=== PATIENT | female | born 1935 | race Caucasian/White ===

== ENCOUNTER 2018-04-26 15:12 | Emergency (ER) | payer MEDICARE ==
--- NOTE | 2018-04-26 15:35 | UC ---
Complaint Female HPI - HPI Summary HPI Summary: urinary urgency and frequency for 6 months---worsening in the past 2 weeks despite treatment with antibiotics. Also c/o ear feeling like there is "something in them". HAs had leg swelling for a while ---refuses to use compression stockings--denies SOB, Orthopnea, - History Of Current Complaint Chief Complaint: UCGU Time Seen by Provider: 04/26/18 15:28 Hx Obtained From: Patient, Family/Dramatic Art Teacher ?: No Onset/Duration: Gradual Onset, Lasting Weeks Timing: Intermittent Radiates to: denies pain with urination does have some increase urinary incontenence Associated Signs And Symptoms: Positive: Negative - Allergies/Home Medications Allergies/Adverse Reactions: Allergies Allergy/AdvReac Type Severity Reaction Status Date / Time sulindac Allergy Unknown Verified 04/26/18 15:53 Reaction Details atorvastatin [From Lipitor] AdvReac See Comment Verified 04/26/18 15:51 simvastatin AdvReac See Comment Verified 04/26/18 15:50 clinirol Allergy Itching Uncoded 04/26/18 15:53 mobic Allergy Unknown Uncoded 04/26/18 15:53 Reaction Details lovastatin AdvReac See Comment Uncoded 04/26/18 15:51 Home Medications: Home Medications Apixaban* [Eliquis*] 2.5 mg PO BID 04/26/18 [History Confirmed 04/26/18] Atorvastatin* [Lipitor*] 10 mg PO DAILY 04/26/18 [History Confirmed 04/26/18] Calcium Carbonate/Vitamin D3 [Calcium 600+D Softgel] 1 each PO DAILY 04/26/18 [ History Confirmed 04/26/18] Ferrous Sulfate TAB* 325 mg PO DAILY 04/26/18 [History Confirmed 04/26/18] Folic Acid TAB* [Folvite TAB*] 1 mg PO DAILY 04/26/18 [History Confirmed ] Furosemide TAB* [Lasix TAB*] 20 mg PO DAILY 04/26/18 [History Confirmed 04/26/18 ] Gabapentin CAP(*) [Neurontin 300 CAP(*)] 300 mg PO DAILY 04/26/18 [History Confirmed 04/26/18] L.acidoph,Paracasei, B.lactis [Probiotic] 1 each PO DAILY 04/26/18 [History Confirmed 04/26/18] Latanoprost 0.005%* [Xalatan 0.005%*] 1 drop BOTH EYES QPM 04/26/18 [History Confirmed 04/26/18] Levothyroxine TAB* [Synthroid TAB*] 75 mcg PO DAILY 04/26/18 [History Confirmed 04/26/18] Methotrexate TAB* 5 tab PO WEEKLY 04/26/18 [History Confirmed 04/26/18] Metoprolol Succinate XL TAB* [Toprol XL TAB*] 25 mg PO DAILY 04/26/18 [History Confirmed 04/26/18] Mycostatin Powder 04/26/18 [History] Omeprazole CAP* [Prilosec CAP* 20 MG] 20 mg PO DAILY 04/26/18 [History Confirmed 04/26/18] Psyllium Husk [Metamucil] 0.52 gm PO DAILY 04/26/18 [History Confirmed 04/26/18] Sertraline* [Zoloft*] 25 mg PO DAILY 04/26/18 [History Confirmed 04/26/18] Tiotropium CAP.INH* [Spiriva CAP.INH*] 1 cap.inh INH DAILY 04/26/18 [History Confirmed 04/26/18] Vitamin D 3 DAILY 04/26/18 [History] Zoledronic Acid/Mannitol-Water [Zoledronic Acid 5 mg/100 ml] 04/26/18 [History] dilTIAZem HCl [Dilt-Xr] 180 mg PO DAILY 04/26/18 [History Confirmed 04/26/18] inFLIXimab* [Remicade*] 100 mg IV SEE INSTRUCTIONS 04/26/18 [History Confirmed 04/26/18] proPAFENone TAB* [Rythmol*] 150 mg PO Q6H 04/26/18 [History Confirmed 04/26/18] PMH/Surg Hx/FS Hx/Imm Hx Previously Healthy: No Endocrine History: Hypothyroidism, Dyslipidemia Cardiovascular History: Hypertension GI/ History: Gastroesophageal Reflux Psychological History: Other Other Psychological History: Dementia - Family History Known Family History: Positive: None - Social History Occupation: Retired Lives: Assisted Living Alcohol Use: None Substance Use Type: None Smoking Status (MU): Never Smoked Tobacco Have You Smoked in the Last Year: No Review of Systems Constitutional: Negative Skin: Negative Eyes: Negative ENT: Other - cerumen in ears Respiratory: Negative Cardiovascular: Negative Gastrointestinal: Negative Genitourinary: Negative Motor: Negative Neurovascular: Negative Musculoskeletal: Negative, Other: - swelling in BLE--- Neurological: Negative Psychological: Negative Is Patient Immunocompromised?: No All Other Systems Reviewed And Are Negative: Yes Physical Exam Triage Information Reviewed: Yes Completion Of Physical Exam Limited Due To: Dementia Appearance: Well-Appearing, No Pain Distress, Well-Nourished Vital Signs Reviewed: Yes Eye Exam: Normal Eyes: Positive: Conjunctiva Clear, Conjunctiva Inflamed ENT Exam: Normal ENT: Positive: Normal ENT inspection, Hearing grossly normal, Pharynx normal, TMs normal, Tonsillar exudate, Hoarse voice, Sinus tenderness Neck exam: Normal Neck: Positive: Supple, Nontender, No Lymphadenopathy Respiratory Exam: Normal Respiratory: Positive: Chest non-tender, Lungs clear, Normal breath sounds, No respiratory distress, No accessory muscle use Cardiovascular Exam: Normal Cardiovascular: Positive: RRR, No Murmur, Pulses Normal, Brisk Capillary Refill Abdominal Exam: Normal Abdomen Description: Positive: Nontender, No Organomegaly, Soft. Negative: CVA Tenderness (R), CVA Tenderness (L) Bowel Sounds: Positive: Present Musculoskeletal Exam: Other Musculoskeletal: Positive: Other: - slight swelling left knee Neurological Exam: Normal Psychological Exam: Normal Skin Exam: Normal Diagnostics - Laboratory Diagnostic Studies Completed/Ordered: Ua---trace leukoesterace, +1 ketones Complaint Female Dx - Course Course Of Treatment: good relief of ear pressure, will culture urine, will increase ditropan to 5 mg po qd, referral made to Dr. Santos for knee---follow with PROJECT MANAGEMENT PROFESSOR/PCP this week - Differential Dx/Diagnosis Provider Diagnoses: cerumen impaction-resolved, bilateral edema, knee pain (L), dysuria Discharge - Sign-Out/Discharge Documenting (check all that apply): Discharge/Admit/Transfer - Discharge Plan Condition: Stable Disposition: HOME Prescriptions: Oxybutynin TAB* [Ditropan TAB*] 5 mg PO DAILY #30 tab Patient Education Materials: Urinary Incontinence (ED), Cerumen Impaction (ED) , Knee Pain (ED) Referrals: Arun Santos MD [Medical Doctor] - 3 Days No Primary Care Phys,NOPCP [Primary Care Provider] - - Billing Disposition and Condition Condition: STABLE Disposition: HOME
--- NOTE | 2018-04-30 07:28 | UC ---
- Progress Note Progress Note: Pt presented with urinary symptoms for 6mo with two weeks of worsening symptoms. colony count less than 100K. Please call patient and see if she feels well. Also fax results to pcp so they can decide the next plan. Watchful waiting , repeat culture or referral. If she feels worse in any way, pt may need to return here for re eval. Discharge - Sign-Out/Discharge Documenting (check all that apply): Post-Discharge Follow Up - Discharge Plan Condition: Stable Disposition: HOME Prescriptions: Oxybutynin TAB* [Ditropan TAB*] 5 mg PO DAILY #30 tab Patient Education Materials: Urinary Incontinence (ED), Cerumen Impaction (ED) , Knee Pain (ED) Referrals: Arun Santos MD [Medical Doctor] - 3 Days No Primary Care Phys,NOPCP [Primary Care Provider] - - Billing Disposition and Condition Condition: STABLE Disposition: Home
== END 2018-04-26 17:15 | disposition home or self-care (01) ==
LOC: UCCORT 15:12
DX: R30.0 Dysuria (principal); M25.562 Pain in left knee; R60.0 Localized edema; H61.20 Impacted cerumen, unspecified ear; R39.15 Urgency of urination; R35.0 Frequency of micturition; K21.9 Gastro-esophageal reflux disease without esophagitis; I10 Essential (primary) hypertension; E03.9 Hypothyroidism, unspecified; Z79.899 Other long term (current) drug therapy; Z88.8 Allergy status to other drugs, medicaments and biological substances; Z88.6 Allergy status to analgesic agent
CPT/HCPCS: 81003; 87077; 87086; 87186; 99202; 99203; G0463

== ENCOUNTER 2018-11-29 17:10 | Emergency (ER) | payer MEDICARE ==
--- OUTSIDE RECORDS SUMMARY | 2018-11-29 17:23 | XMS REPORT ---
:1935 External Reference #:[id number] Author Organization [facility] Address [address], [address] [place] [address] Phone [phone] Care Team Providers Name Role Phone Sarah Arreguin MD Care Team Information Distribution Technician Unavailable Courtney Dang MD, PHD Primary Care Physician Unavailable Payers Type Date Identification Numbers Payment Provider Subscriber Medicare Primary Policy Number: [id number] Medicare Malika Redd PayID: [id number] [address] [place] [address] Medigap Part B Policy Number: [id number] [facility] Malika Redd PayID: [id number] [address] [place] [address] Medigap Part B Expires: 2017 Policy Number: Fiona Redd [id number] Progressive PayID: [id number] [address] [place] [address] Problems Date Description Provider Status Onset: 06/09/2018 History of fall Courtney Dang MD, PHD Active Onset: 06/09/2018 Rheumatoid arthritis Courtney Dang MD, PHD Active Onset: 06/09/2018 Long-term current use of Courtney Dang MD, PHD Active anticoagulant Onset: 06/09/2018 Repetitive self-excoriation Courtney Dang MD, PHD Active Onset: 06/09/2018 Other seborrheic keratosis Courtney Dang MD, PHD Active Onset: 06/09/2018 Stress incontinence (female) (male) Courtney Dang MD, PHD Active Onset: 06/09/2018 Paroxysmal atrial fibrillation Courtney Dang MD, PHD Active Onset: 06/09/2018 Hypothyroidism Courtney Dang MD, PHD Active Onset: 06/09/2018 Edema Courtney Dang MD, PHD Active Onset: 06/09/2018 Electrocardiogram abnormal Courtney Dang MD, PHD Active Onset: 06/09/2018 Bradycardia, unspecified Courtney Dang MD, PHD Active Onset: 06/23/2018 Urinary tract infectious disease Courtney Dang MD, PHD Active Onset: 06/23/2018 Dysuria Courtney Dang MD, PHD Active Onset: 06/23/2018 Increased frequency of urination Courtney Dang MD, PHD Active Onset: 08/14/2018 Knee pain Courtney Dang MD, PHD Active Onset: 08/14/2018 Shoulder joint pain Courtney Dang MD, PHD Active Onset: 08/14/2018 C/O - a back symptom Courtney Dang MD, PHD Active Onset: 08/14/2018 Essential hypertension Courtney Dang MD, PHD Active Onset: 08/14/2018 Immunization Courtney Dang MD, PHD Active Onset: 07/09/2018 Pure hypercholesterolemia Dre Gomez PA Active Family History Date Family Member(s) Problem(s) Comments General Heart Attack General Hypertension General CAD General Heart Disease Father due to cardiac unspecified () Mother due to cardiac unspecified () First Sister Malignant Lymphoma (Clinical) Grandfather due to Motor Vehicle Accident () Grandfather 78 Social History Type Date Description Comments Lives With Assisted Living [facility] Diet Low Sodium Does not adhere to diet. Occupation [employer] Occupation Retired Cigarette Use Former Cigarette Smoker ETOH Use Occasionally consumed alcohol in the past Smoking Patient is a former smoker Daily Caffeine Consumes on average 1 soda per occasionally day Security Architect Name Assisted Living Facility General Hx Text lives at [facility]. January. Allergies, Adverse Reactions, Alerts Date Description Reaction Status Severity Comments 05/07/2018 Lipitor active 05/07/2018 Lovastatin active 05/07/2018 Mobic active 05/07/2018 Simvastatin active 05/07/2018 Sulindac active 06/09/2018 Sulindac active Medications Medication Date Status Form Strength Qnty SIG Indications Ordering Provider Nystatin Active Powder [id number] 60gm apply to [place], 018 /GM affected Courtney, area twice , PHD a day Metoprolol Active Tablets ER 25mg 30tabs 1 by mouth I48.1 Rios, Succinate ER 018 24HR every Marni evening Felicitas, MSN, [employer]ANT [employer] AIDE Ranexa Active Tablets ER 500mg 60tabs 1 tab by I48.1 Julieth, 018 12HR mouth Schuyler M., twice a M.DVeronica, [facility] day Arnicare Active Gel 75g apply to M25.562 [place], 018 affected Courtney, area four , PHD times a day pain, swelling, bruising [place]-3 CF Active Capsules 1000mg 60caps 1 cap by F42.4 [place], 018 mouth Courtney, twice a MD, PHD day with meals Nac 600 Active Capsules 600mg 90caps 1 cap by F42.4 [place] 018 mouth Courtney, three , PHD times a day after meals Arnicare Active Cream 210gm apply to L82.1 [place], Arnica 018 affected Courtney, area four , PHD times a day as needed M06.9 Depend 06/09/2018 Active Misc 100units 1 every 4 N39.3 [place], Adjustable hours as Courtney, Underwear L/XL needed , PHD Furosemide 05/07/2018 Active Tablets 20mg 30tabs 1 tab by R60.0 [place], mouth in the Courtney, morning with MD, PHD potassium/ba viviana if you gain 2 lbs overnight or 5 lbs in a week. Levothyroxine Active Tablets 75mc 1 by mouth Unknown Sodium g every day Folic Acid Active Tablets 1mg 2 by mouth Unknown every day Omeprazole Active Capsules 20mg 1 po daily Unknown Sertraline HCL Active Tablets 25mg 1 by mouth Unknown every day Latanoprost Active Solution 0.00 1 drop each Unknown 5% eye at night Atorvastatin Active Tablets 10mg 1 by mouth Unknown Calcium every day Eliquis Active Tablets 2.5m 1 tab by Unknown g mouth twice daily Remicade Active Solution 100m every 6 Unknown Rec g weeks Metamucil Plus Active Capsules as directed Unknown Calcium Gabapentin Active Capsules 300m 1 by mouth Unknown g three times a day as needed Methotrexate Active Tablets 2.5m 5 tabs by Unknown g mouth every week Vitamin D3 - Active Tablets 400U take one Unknown 400 nit tablets by mouth every day Metoprolol 10/02/2018 - Hx Tablets ER 50mg 30tabs 1 by mouth I48.1 Rios, Succinate ER 10/21/2018 24HR every day Marni Polk, MSN, [employer]ANT CONTR[employer] AIDE Digoxin 09/25/2018 - Hx Tablets 125m 30tabs 1 by mouth I48.0 Julieth, 10/20/2018 cg every day Schuyler Osman M.D., [facility] Amoxicillin/Cla 09/25/2018 - Hx Tablets 875- 14tabs 1 tab twice J20.9 nohelia Clancyanate 09/27/2018 125m daily for 7 Schuyler M., Potassium g days M.D., [facility] Ranexa 08/18/2018 Hx Tablets ER 500m 60tabs 1 by mouth R07.2 Arreguin, 12HR g twice a day MD Sarah Metoprolol 07/09/2018 Hx Tablets ER 25mg 30tabs 1 by mouth I48.1 Davidenko, Succinate ER 24HR every Schuyler M., evening M.D., [facility] Amoxicillin 06/23/2018 - Hx Capsules 500m 14caps 1 tab by Katia.Kayleigh Dang, 08/14/2018 g mouth twice Courtney, a day , PHD Diflucan 06/23/2018 Hx Tablets 150m 1tabs 1 tab by N39.0 [place], g mouth as Courtney, needed for , PHD yeast overgrowth. Propafenone HCL 06/20/2018 - Hx Tablets 150m 90tabs 1 by mouth I48.1 Rios, 07/09/2018 g tid Marni Polk, MSN, [employer]ANT CONTR[employer] AIDE Propafenone HCL 06/11/2018 - Hx Tablets 300m three times Arreguin, 06/18/2018 g daily MD Sraah Keflex 06/11/2018 - Hx Capsules 500m 14caps 1 cap by N39.0 [place], 06/23/2018 g mouth twice Courtney, a day , PHD Diltiazem CD 05/07/2018 - Hx Caps ER 120m 90caps 1 by mouth R00.1 Julieth, 06/09/2018 24HR g every day Schuyler Osman M.D., [facility] Physical 10/07/2017 Hx please Rodríguez, Therapy evaluate and MD Sarah treat balance training, fall prevention Propafenone HCL - Hx Tablets 150m 1 po every 6 Unknown 06/11/2018 g hours Furosemide Hx Tablets 20mg 1 po qd Unknown Diltiazem CD - Hx Caps ER 180m 1 by mouth R00.1 Unknown 05/07/2018 24HR g every day Metoprolol - Hx Tablets ER 25mg 1/2 by mouth I48.1 Unknown Succinate ER 07/09/2018 24HR every day Oxybutynin Hx Tablets ER 5mg 1/2 by Unknown Chloride ER 24HR mouth every day Methotrexate Hx Tablets 2.5m 5 tabs every Unknown g Spiriva - Hx Capsules 18mc Once every Unknown Handihaler 06/09/2018 g morning Reclast - Hx Solution 5mg/ once a year Unknown 06/09/2018 100M L Calcium 600 + D - Hx Tablets 600- 2 by mouth Unknown 06/23/2018 200m daily g-Un it Ferrousul Hx Tablets 325( 1 by mouth Unknown 65Fe every day ) mg Probiotic Hx Tablets DR 1 po daily Unknown Vitamin D3 Hx Tablets 1 tablet Unknown Complete daily. Furosemide - Hx Tablets 20mg 1 tab by R60.0 Unknown 05/07/2018 mouth every other day Diltiazem HCL Hx Caps ER 120m 1 tab poqd R00.1 Unknown ER 12HR g Zoledronic Acid Hx Solution 5mg/ to be Unknown 100M dispensed in L office 5 mg iv every year Nystop Hx Powder 1000 60gm apply B35.4 [place], 00Un topical Courtney, it/G route twice , PHD M daily to affected area as needed. F42.4 L82.1 Caltrate 600 Hx Tablets 1500(600Ca) mg 1 po daily Unknown Metoprolol - Hx Tablets ER 25mg 1 by I48.1 Unknown Succinate ER 10/02/2018 24HR mouth every day Ranexa - Hx Tablets ER 500mg 1 tab by R07.2 Unknown 09/25/2018 12HR mouth twice a day Immunizations CPT Code Status Date Vaccine Lot # [id number] Given 08/14/2018 Influenza Virus Vaccine, Quadrivalent, 36 Mos+, [id number] .[id number] Vital Signs Date Vital Result Comment 11/04/2018 BP Systolic Sitting Left Arm 108 mmHg BP Diastolic Sitting Left Arm 62 mmHg Heart Rate 90 /min Respiratory Rate 18 /min Weight 185.00 lb O2 % BldC Oximetry 94 % Ora 10/21/2018 BP Systolic Sitting Left Arm 110 mmHg BP Diastolic Sitting Left Arm 62 mmHg Heart Rate 56 /min Respiratory Rate 20 /min Weight 183.00 lb 10/02/2018 BP Systolic Sitting Right Arm 128 mmHg BP Diastolic Sitting Right Arm 68 mmHg Heart Rate 98 /min Respiratory Rate 16 /min 09/25/2018 BP Systolic Sitting Left Arm 104 mmHg BP Diastolic Sitting Left Arm 77 mmHg Heart Rate 120 /min Respiratory Rate 14 /min Height 60 inches 5'0" Weight 186.00 lb BMI (Body Mass Index) 36.3 kg/m2 BSA (Body Surface Area) 1.81 m2 Reddick body weight in kilograms 45 O2 % BldC Oximetry 96 % 08/18/2018 BP Systolic Sitting Left Arm 114 mmHg BP Diastolic Sitting Left Arm 62 mmHg Heart Rate 59 /min Respiratory Rate 16 /min Height 60 inches 5'0" Weight 187.00 lb BMI (Body Mass Index) 36.5 kg/m2 BSA (Body Surface Area) 1.81 m2 [place] body weight in kilograms 45 O2 % BldC Oximetry 90 % 08/14/2018 BP Systolic 151 mmHg BP Diastolic 67 mmHg Body Temperature 98.1 F Heart Rate 51 /min Respiratory Rate 20 /min Height 60 inches 5'0" Weight 186.00 lb BMI (Body Mass Index) 36.3 kg/m2 BSA (Body Surface Area) 1.81 m2 Reddick body weight in kilograms 45 O2 % BldC Oximetry 95 % 07/09/2018 BP Systolic Sitting Right Arm 110 mmHg BP Diastolic Sitting Right Arm 68 mmHg Heart Rate 104 /min Respiratory Rate 18 /min Height 60 inches 5'0" Weight 183.00 lb BMI (Body Mass Index) 35.7 kg/m2 BSA (Body Surface Area) 1.80 m2 Reddick body weight in kilograms 45 06/23/2018 BP Systolic 167 mmHg BP Diastolic 72 mmHg Body Temperature 98.8 F Heart Rate 57 /min Respiratory Rate 20 /min Height 60 inches 5'0" Weight 189.00 lb BMI (Body Mass Index) 36.9 kg/m2 BSA (Body Surface Area) 1.82 m2 Reddick body weight in kilograms 45 O2 % BldC Oximetry 95 % 06/11/2018 BP Systolic Sitting Right Arm 130 mmHg BP Diastolic Sitting Right Arm 62 mmHg Heart Rate 81 /min Respiratory Rate 18 /min Height 60 inches 5'0" Weight 188.00 lb BMI (Body Mass Index) 36.7 kg/m2 BSA (Body Surface Area) 1.82 m2 Reddick body weight in kilograms 45 O2 % BldC Oximetry 96 % 06/09/2018 BP Systolic 130 mmHg BP Diastolic 75 mmHg Body Temperature 98.2 F Heart Rate 54 /min Respiratory Rate 16 /min Height 60 inches 5'0" Weight 187.00 lb BMI (Body Mass Index) 36.5 kg/m2 BSA (Body Surface Area) 1.81 m2 [place]ick body weight in kilograms 45 O2 % BldC Oximetry 89 % Pain Level 7 with ambulation 05/07/2018 BP Systolic Sitting Left Arm 126 mmHg BP Diastolic Sitting Left Arm 58 mmHg Heart Rate 53 /min Respiratory Rate 18 /min Weight 189.00 lb O2 % BldC Oximetry 95 % Ora 02/04/2018 BP Systolic Sitting Left Arm 134 mmHg BP Diastolic Sitting Left Arm 66 mmHg Heart Rate 55 /min Respiratory Rate 16 /min Weight 182.00 lb 10/07/2017 BP Systolic Sitting Right Arm 132 mmHg BP Diastolic Sitting Right Arm 68 mmHg Heart Rate 56 /min Respiratory Rate 16 /min Weight 179.00 lb Results Test Date Test Result H/L Range Note CBC W/Automated Diff 08/18/2018 White Blood Count 7.2 K/uL 3.1-10.7 1 Red Blood Count 3.84 M/uL Low 3.90-5.40 1 Hemoglobin 11.8 gm/dL 11.6-15.8 1 Hematocrit 36.5 % 36.0-46.1 1 Mean Cell Volume 95.1 fl 80.9-99.0 1 Mean Corpuscular HGB 30.7 pg 25.9-32.7 1 Mean Corpuscular HGB Conc 32.3 g/dL 30.8-34.3 1 Platelet Count 228 K/uL 155-360 1 Red Cell Distri Width SD 48.0 fl High 3-47 1 Red Cell Distri Width %CV 14.3 % 11.7-14.4 1 Mean Platelet Volume 10.8 fL 8.9-12.4 1 Neut% 55.4 % 40.4-72.8 1 Lymph % 34.4 % 20.0-42.0 1 Wallace % 7.6 % 4.3-13.2 1 Eo% 1.8 % 0.0-6.6 1 Bas% 0.8 % 0.0-1.1 1 Neut# 4.00 K/uL 1.8-7.0 1 Lymph # 2.49 K/uL 1.0-4.0 1 Wallace # 0.55 K/uL 0.3-0.9 1 Eos # 0.13 K/uL 0.0-0.5 1 Baso # 0.06 K/uL 0.0-0.1 1 Anticoagulant Therapy? Unknown 1 Comprehensive Metabolic Panel 08/18/2018 Glucose 120 mg/dL High 74-106 1 BUN 19 mg/dL High 7-18 1 Creatinine 1.0 mg/dL 0.6-1.3 1 Glom Filtration Rate, Estimate 56 mL/min >60 1 If >60 mL/min >60 1, 2 BUN/Creat 19.0 ratio 1 Sodium 142 mmol/L 136-145 1 Potassium 4.3 mmol/L 3.5-5.1 1 Chloride 110 mmol/L High 98-107 1 Carbon Dioxide 27 mmol/L 21-32 1 Anion Gap 5 mEq/L Low 8-16 1 Calcium 8.2 mg/dL Low 8.5-10.1 1 Total Protein 6.8 g/dL 6.4-8.2 1 Albumin 3.4 g/dL 3.4-5.0 1 Globulin 3.4 g/dL 1.9-4.3 1 Alb/Glob 1.0 ratio 1 Bilirubin,Total 0.4 mg/dL 0.2-1.0 1 Sgot/Ast 14 U/L Low 15-37 1, 3 SGPT/Alt 19 U/L 12-78 1 Alkaline Phosphatase 86 U/L 45-117 1 Reflex add FT3? Y 1 Reflex add FT4? Y 1 LDL Cholesterol Profile 08/18/2018 Cholesterol 148 mg/dL <200 1, 4 Triglycerides 95 mg/dL <150 1, 5 HDL Cholesterol 63 mg/dL >40 1, 6 LDL-Cholesterol 66 mg/dL < 100 1, 7 Reflex add FT3? Y 1 Reflex add FT4? Y 1 Protime 08/18/2018 Protime 14.9 seconds High 12.0-14.4 1 Inr 1.2 High 0.9-1.1 1, 8 Anticoagulant Therapy? Unknown 1 TSH Reflex FT4 And/Or FT3 08/18/2018 Thyroid Stim Hormone 0.86 uIU/mL 0.30-4.20 1 Reflex add FT3? Y 1 Reflex add FT4? Y 1 Urine Dipstick 06/23/2018 Ua Color yellow Yellow Ua Clarity clear Clear Ua Leuko Trace Negative Ua Nitrite negative Negative Ua Urobilinogen negative Low 0.2 - 1.0 E.U./dL Ua Protein 1+ High Negative Ua PH 5.5 Low 6.5-7.5 Ua Blood 3+ High Negative Ua Specific [place] 1.030 1.010-1.030 Ua Ketones negative Negative Ua Bilirubin negative Negative Ua Glucose negative Negative Urine Culture 06/11/2018 Urine Culture ESCHERICHIA COLI 9, 10 Quantity > 100,000 CFU/mL 9, 11 Urine Culture URETHRAL BASIL 9 Quantity 10,000 - 50,000 <SEE NOTE> 9, 12 Escherichia Coli 06/11/2018 Nitrofurantoin <=16 9 Trimethoprim/Sulfamethoxazole <=20 9 Ampicillin >=32 9 Cefazolin <=4 9 Ampicillin/Sulbactam >=32 9 Ciprofloxacin 1 9 Piperacillin/Tazobactam <=4 9 Ceftazidime <=1 9 Ceftriaxone <=1 9 Cefepime <=1 9 Levofloxacin 1 9 Imipenem <=0.25 9 Gentamicin <=1 9 Tobramycin <=1 9 Culture If Indicated 06/11/2018 Culture If Indicated CULTURE TO FOLLO 9 , 13 Comment Comment <SEE NOTE> Ua RFX Micro & 06/11/2018 Urine Color YELLOW Yellow 9 Culture II Urine Clarity SL CLOUDY Clear 9 Urine Glucose - Dipstick NEGATIVE mg/dL Negative 9 Urine Bilirubin - Dipstick NEGATIVE Negative 9 Urine Ketone NEGATIVE mg/dL Negative 9 Urine Specific [place] 1.025 1.010-1.030 9 Urine Blood LARGE Negative 9 Urine PH 6.0 Low 6.5-7.5 9 Urine Protein - Dipstick 30 mg/dL High Negative 9 Urine Urobilinogen - Dipstick 0.2 E.U./dL 0.2-1.0 9 Urine Nitrite - Dipstick POSITIVE Negative 9 Urine Leuk Esterase LARGE Negative 9 Urine RBC 10-20 rbc/hpf High 0-2 9 Urine WBC 20-30 wbc/hpf High 0-7 9 Urine Epithelial Cells VERY FEW /lpf None Seen 9 Urine Calcium Oxalate Crystals FEW None Seen 9 Urine Bacteria MODERATE None Seen 9 Laboratory test finding 06/11/2018 Thyroid Stim Hormone 2.17 uIU/mL 0.30- 4.20 9 Free T4 1.14 ng/dL 0.76-1.46 9 Vitamin D,25-Hydroxy <pending> 9 Sedimentation Rate <pending> 9 Laboratory test finding 05/14/2018 Magnesium 2.2 mg/dL 1.8-2.4 14 Basic Metabolic Panel 05/14/2018 Glucose 98 mg/dL 74-106 14 BUN 19 mg/dL High 7-18 14 Creatinine 1.1 mg/dL 0.6-1.3 14 Glom Filtration Rate, Estimate 50 mL/min >60 14 If >60 mL/min >60 14, 15 BUN/Creat 17.2 ratio 14 Sodium 142 mmol/L 136-145 14 Potassium 4.2 mmol/L 3.5-5.1 14 Chloride 107 mmol/L 98-107 14 Carbon Dioxide 26 mmol/L 21-32 14 Anion Gap 9 mEq/L 8-16 14 Calcium 8.3 mg/dL Low 8.5-10.1 14 1 148.0 2 Note: Persistent reduction for 3 months or more in an eGFR <60 mL/min/1.73 m2 defines CKD. Patients with eGFR values >/=60 mL/min/1.73 m2 may also have CKD if evidence of persistent proteinuria is present. The original MDRD equation for estimated GFR is not valid for patients less than 18 years of age. Additional information may be found at www.kdoqi.org. 3 Values below the stated reference ranges of AST and ALT can be seen in normal populations. Clinical correlation is suggested. 4 Reference Guidelines*: Desirable: ........... < 200 mg/dL Borderline High: ..... 200-239 mg/dL High: ................ >=240 mg/dL * The National Cholesterol Education Program (NCEP) 5 Reference Guidelines*: Normal: ............. < 150 mg/dL Borderline High: .... 150-199 mg/dL High: ............... 200-499 mg/dL Very High: .......... > 500 mg/dL * Source: National Cholesterol Education Program (NCEP) 6 Reference Guidelines*: Low HDL: ..... < 40 mg/dL Normal: ..... 40-60 mg/dL Desirable: ... > 60 mg/dL *The National Cholesterol Education Program(NCEP) 7 Reference Guidelines*: Optimal:........... <100 mg/dL Near Optimal....... 100-129 mg/dL Borderline High.... 130-159 mg/dL High............... 160-189 mg/dL Very High.......... >=190 mg/dL * Source: National Cholesterol Education Program (NCEP) 8 THERAPEUTIC INR RANGE: 2.0 - 3.0 DVT, Pulmonary embolus, prophylaxis against venous thrombosis or systemic embolization in high risk patients. 2.5 - 3.5 Mechanical heart valves 9 N39.9 E03.9 10 ESCHERICHIA COLI 11 > 100,000 CFU/mL 12 10,000 - 50,000 CFU/mL 13 CULTURE TO FOLLOW 14 R60.0 15 Note: Persistent reduction for 3 months or more in an eGFR <60 mL/min/1.73 m2 defines CKD. Patients with eGFR values >/=60 mL/min/1.73 m2 may also have CKD if evidence of persistent proteinuria is present. The original MDRD equation for estimated GFR is not valid for patients less than 18 years of age. Additional information may be found at www.kdoqi.org. Procedures Date CPT Code Description Status 10/21/2018 26093 EKG-Tracing And Report Completed 10/02/2018 69206 EKG-Tracing And Report Completed 09/25/2018 75324 EKG-Tracing And Report Completed 08/18/2018 66523 EKG-Tracing And Report Completed 07/09/2018 77171 EKG-Tracing And Report Completed 06/18/2018 35917 EKG-Tracing And Report Completed 06/11/2018 65670 EKG-Tracing And Report Completed 06/04/2018 93856 Echocardiogram Complete Completed 05/07/2018 14741 EKG-Tracing And Report Completed 10/07/2017 18272 EKG-Tracing And Report Completed 11/25/2016 Bone Mineral Density Test Completed 11/25/2016 Mammogram Completed Encounters Type Date Location Provider CPT E/M Dx Office Visit 11/04/2018 1:20p Cardiology Office Marni Rios 86865 I48.1 Felicitas, MSN, PLANT CONTROL AIDE I25.10 I10 Office Visit 10/21/2018 11:40a [place] [address] I48.1 I10 I25.10 I49.5 Office Visit 10/02/2018 11:40a Cardiology Office Marni Rios, [address] I48.1 MSN, PLANT CONTROL AIDE I10 I25.10 Office Visit 09/25/2018 1:40p [place] [address] I48.0 J20.9 I10 R94.31 Office Visit 08/18/2018 1:00p [place] [address] I48.0 R07.2 R94.31 Z79.01 Office Visit 08/14/2018 11:00a [place], [address] R00.1 [facility] PHD M06.9 E03.9 N39.3 M25.562 M25.511 M62.830 I10 Z23 Z79.01 Office Visit 07/09/2018 1:30p [place] [address] I48.1 Z79.01 R60.0 N39.0 I34.0 Office Visit 06/23/2018 12:30[place], [address] N39.0 Women's Health PHD R30.0 R35.0 Office Visit 06/18/2018 11:00a [place] [address] I48.0 Office Visit 06/11/2018 11:15a [place] [address] N39.0 I48.0 Z79.01 R60.0 Office Visit 06/09/2018 10:30a [facility] [place], [address] N39.3 [facility] PHD I48.0 E03.9 R60.0 M06.9 R94.31 R00.1 F42.4 L82.1 Z79.01 Z91.81 Office Visit 05/07/2018 11:40a [place] [address] R60.0 I48.0 R00.1 Z79.01 R94.31 Office Visit 02/04/2018 2:15p [place] [address] I48.0 Z79.01 R07.89 Office Visit 10/07/2017 11:15a [place] [address] I48.0 Z79.01 R94.31 Z91.81 Plan of Care Future Appointment(s):03/05/2019 1:20 pm - Marni Rios, MSN, PLANT CONTROL AIDE at Cardiology [id number]/10/2019 11:00 am - Courtney Dang MD, PHD at [facility]11/04/2018 - Marni Rois, MSN, FNPI48.1 Persistent atrial fibrillationComments:As she does not see much of a difference with SR in the 50s vs. AF with HR in the 90s, I do not think that we need to make any further changes. 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
[2018-11-29 17:30] VITALS: BP 133/55
--- NOTE | 2018-11-29 17:42 | UC ---
Respiratory Complaint HPI - HPI Summary HPI Summary: C/O congestion with frontal sinus pain and coughing. Has COPD. Denies feeling SOB. - History of Current Complaint Chief Complaint: UCGeneralIllness Stated Complaint: COUGH,CHEST CONGESTION Time Seen by Provider: 11/29/18 17:32 Hx Obtained From: Patient Onset/Duration: Gradual Onset, Lasting Weeks - 2, Worse Since - last 2-3 days Timing: Constant Severity Initially: Mild Severity Currently: Mild Pain Intensity: 3 Character: Cough: Nonproductive Aggravating Factors: Deep Breaths, Recumbent Position Associated Signs And Symptoms: Positive: URI, Nasal Congestion, Sinus Discomfort - Allergies/Home Medications Allergies/Adverse Reactions: Allergies Allergy/AdvReac Type Severity Reaction Status Date / Time sulindac Allergy Unknown Verified 04/26/18 15:53 Reaction Details clinirol Allergy Itching Uncoded 04/26/18 15:53 mobic Allergy Unknown Uncoded 04/26/18 15:53 Reaction Details lovastatin AdvReac See Comment Uncoded 04/26/18 15:51 Home Medications: Home Medications [place]-3 Fatty Acids/Fish Oil [Fish Oil 1,000 mg Capsule] 1 each PO DAILY [History Confirmed 11/29/18] Ranolazine (Nf) [Ranexa] 500 mg PO DAILY 11/29/18 [History Confirmed 11/29/18] PMH/Surg Hx/FS Hx/Imm Hx Endocrine History: Hypothyroidism, Dyslipidemia Cardiovascular History: Atrial Fibrillation Respiratory History: COPD - Surgical History Surgical History: Yes Surgery Procedure, Year, and Place: knee replacement, appy, hysterectomy - Family History Known Family History: Negative: Diabetes - Social History Occupation: Retired Lives: Assisted Living Alcohol Use: None Substance Use Type: None Smoking Status (MU): Never Smoked Tobacco Have You Smoked in the Last Year: No When Did the Patient Quit Smoking/Using Tobacco: 50yrs Review of Systems All Other Systems Reviewed And Are Negative: Yes ENT: Positive: Sore Throat, Nasal Discharge, Sinus Congestion, Sinus Pain/ Tenderness Respiratory: Positive: Cough Is Patient Immunocompromised?: Yes - on methotrexate Physical Exam Triage Information Reviewed: Yes Appearance: No Pain Distress, Well-Nourished, Ill-Appearing Vital Signs: Initial Vital Signs Temp 97.3 F 11/29/18 17:25 Pulse 80 11/29/18 17:25 Resp 15 11/29/18 17:25 BP 133/55 11/29/18 17:25 Pulse Ox 95 11/29/18 17:25 Vital Signs Reviewed: Yes Eyes: Positive: Conjunctiva Inflamed ENT: Positive: Pharynx normal, Nasal congestion, TMs normal Neck exam: Normal Respiratory: Positive: Wheezing - end expiratory wheezing Cardiovascular: Negative: RRR - irregularly irregular Musculoskeletal Exam: Normal Neurological Exam: Normal Psychological Exam: Normal Skin Exam: Normal UC Diagnostic Evaluation - Laboratory O2 Sat by Pulse Oximetry: 95 Respiratory Course/Dx - Differential Dx/Diagnosis Differential Diagnosis/HQI/PQRI: Exacerbation Of COPD, Lower Resp Infection, Sinusitis Provider Diagnosis: Upper respiratory infection, Sinusitis, COPD exacerbation Discharge - Sign-Out/Discharge Documenting (check all that apply): Patient Departure All imaging exams completed and their final reports reviewed: No Studies - Discharge Plan Condition: Stable Disposition: HOME Prescriptions: DOXYcycline CAP(*) [DOXYcycline 100MG CAP(*)] 100 mg PO BID #20 cap predniSONE TAB* [Deltasone 20 MG TAB*] 60 mg PO DAILY #18 tab Patient Education Materials: Upper Respiratory Infection (ED), COPD (Chronic Obstructive Pulmonary Disease) (ED), Sinusitis (ED), Doxycycline (By mouth), Prednisone (By mouth) Referrals: Courtney Dang MD [Primary Care Provider] - 5 Days (Recheck breathing.) - Billing Disposition and Condition Condition: STABLE Disposition: Home
[2018-11-29] MEDS ORDERED: DOXYcycline CAP(*) 100 MG PO ONE (17:49)
== END 2018-11-29 18:13 | disposition home or self-care (01) ==
LOC: UCCORT 17:10
DX: J06.9 Acute upper respiratory infection, unspecified (principal); J32.9 Chronic sinusitis, unspecified; J44.1 Chronic obstructive pulmonary disease with (acute) exacerbation; Z88.6 Allergy status to analgesic agent; Z88.8 Allergy status to other drugs, medicaments and biological substances
CPT/HCPCS: 99212; A9270-GY; G0463